=== PATIENT | female | born 1980 | race Caucasian/White ===

== ENCOUNTER 2019-07-16 10:05 | Emergency (ER) | payer SELFPAY ==
[~2019-07-16] VITALS: Ht 177.8 cm; Wt 99.8 kg
[2019-07-16 11:09] LABS: Basophils # (auto) 0 uL; Basophils % (auto) 0.4 % (0.0-2.0); Eosinophils # (auto) 0.3 uL; Eosinophils % (auto) 5.1 % (0.0-7.0); Hematocrit 43.5 % (36.0-46.0); Hemoglobin 14.7 g/dL (12.2-16.2); Lymphocytes % (auto) 14.8 % (10.0-50.0); Mean Corpuscular Hemoglobin 31.5 pg (28.0-32.0); Mean Corpuscular Hgb Conc. 33.7 g/dL (32.0-36.0); Mean Corpuscular Volume 93.3 fL (80.0-100.0); Monocytes # (auto) 0.4 uL; Monocytes % (auto) 5.9 % (0.0-12.0); Neutrophils # (auto) 4.8 uL; Neutrophils % (auto) 73.8 % (37.0-80.0); Platelet Count (auto) 229 10^3/uL (140-450); Red Blood Cells 4.67 10^6/uL (4.0-5.20); Red Cell Distribution Width 13.3 % (11.8-14.3); White Blood Cell 6.4 10^3/uL (4.4-10.8)
[2019-07-16 11:36] LABS: Calcium 9.3 mg/dL (8.5-10.1); Potassium 4.1 mmol/L (3.5-5.1)
[2019-07-16 12:06] LABS: BUN/Creatinine Ratio 14.3; Bilirubin, Total 0.4 mg/dL (0.2-1.0); Total Protein 8.1 g/dL (6.4-8.2)
[2019-07-16] MEDS ORDERED: MECLIZINE HCL 25 MG TAB PO ONE (12:15)
[2019-07-16] MEDS ORDERED: ONDANSETRON ODT 4 MG TAB PO ONE (12:15)
[2019-07-16] MEDS ORDERED: ONDANSETRON HCL 4 MG/2 ML VIAL IM ONE (12:15)
[2019-07-16 12:49] VITALS: BP 110/72
== END 2019-07-16 13:12 | disposition home or self-care (01) ==
LOC: ER 10:06
DX: R42 Dizziness and giddiness (principal); R11.0 Nausea; R51 Headache
CPT/HCPCS: 36415; 70450; 80053; 85025; 99284; J8597; Q0162; 93005

== ENCOUNTER 2020-08-14 13:33 | Inpatient (IN) | payer OTHER ==
[~2020-08-14] VITALS: Ht 177.8 cm; Wt 108.9 kg
[2020-08-14 14:31] LABS: Basophils # (auto) 0 10 ^3/uL (0-0.2); Basophils % (auto) 0.4 % (0.0-2.0); Eosinophils # (auto) 0.2 10 ^3/uL (0-0.8); Eosinophils % (auto) 2.9 % (0.0-7.0); Hematocrit 41.4 % (36.0-46.0); Hemoglobin 14.1 g/dL (12.2-16.2); Lymphocytes # (auto) 1.2 10 ^3/uL (0.4-5.4); Lymphocytes % (auto) 17.4 % (10.0-50.0); Mean Corpuscular Hemoglobin 31.5 pg (28.0-32.0); Mean Corpuscular Hgb Conc. 33.9 g/dL (32.0-36.0); Mean Corpuscular Volume 92.7 fL (80.0-100.0); Monocytes # (auto) 0.4 10 ^3/uL (0-1.3); Monocytes % (auto) 5.5 % (0.0-12.0); Neutrophils # (auto) 4.9 10 ^3/uL (1.6-8.6); Neutrophils % (auto) 73.8 % (37.0-80.0); Platelet Count (auto) 302 10^3/uL (140-450); Red Blood Cells 4.47 10^6/uL (4.0-5.20); Red Cell Distribution Width 12.8 % (11.8-14.3); White Blood Cell 6.7 10^3/uL (4.4-10.8)
[2020-08-14 15:00] LABS: Albumin 4.1 g/dL (3.4-5.0); Anion Gap 5 (5-15); Blood Urea Nitrogen 10 mg/dL (7-18); Calcium 9.2 mg/dL (8.5-10.1); Carbon Dioxide 27 mmol/L (21-32); Chloride 107 mmol/L (98-107); Glucose 92 mg/dL (74-106); Sodium 139 mmol/L (136-145)
[2020-08-14 15:05] LABS: Alanine Aminotransferase 29 U/L (13-56); Alkaline Phosphatase 62 U/L (45-117); Aspartate Aminotransferase 15 U/L (15-37); Bilirubin, Total 0.4 mg/dL (0.2-1.0); GFR African American 108 mL/min; GFR Non-African American 90 mL/min; Total Protein 7.9 g/dL (6.4-8.2)
[2020-08-15] MEDS ORDERED: DOCUSATE SOD 100 MG CAP PO PRN (00:45)
[2020-08-15] MEDS ORDERED: ONDANSETRON HCL 4 MG/2 ML VIAL IV PRN (00:45)
[2020-08-15] MEDS ORDERED: ACETAMINOPHEN 325 MG TAB PO PRN (00:45)
[2020-08-15] MEDS ORDERED: NITROGLYCERIN 0.4 MG SL TAB SL PRN (00:45)
[2020-08-15] MEDS ORDERED: MORPHINE SULF INJ 2 MG/ML SYRINGE 1ML IV PRN (00:45)
[2020-08-15] MEDS ORDERED: HYDROcodone-ACET 5/325MG TAB PO PRN (00:45)
[2020-08-15] MEDS ORDERED: MORPHINE SULFATE 4 MG/ML SYR/VIAL IV PRN (00:45)
[2020-08-15] MEDS ORDERED: FAMOTIDINE 20 MG TAB PO SCH (10:00)
[2020-08-15] MEDS ORDERED: ENOXAPARIN SOD 40 MG/0.4 ML SYRINGE SC SCH (10:00)
[2020-08-15] MEDS ORDERED: ZINC SULFATE 220mg CAP or TAB PO SCH (10:00)
[2020-08-15] MEDS ORDERED: ASCORBIC ACID 500 MG TAB PO SCH (10:00)
[2020-08-15] MEDS ORDERED: MULTIPLE VITAMIN TAB PO SCH (10:00)
[2020-08-15 20:30] VITALS: BP 134/81
== END 2020-08-15 21:00 | disposition home or self-care (01) | DRG 93 ==
LOC: ER 13:33 → TELE 13:34
PROVIDERS: ADMIT Nurse Practitioner Family; ATTEND Internal Medicine
DX: R20.0 Anesthesia of skin (principal); R07.89 Other chest pain; F17.210 Nicotine dependence, cigarettes, uncomplicated; Z86.718 Personal history of other venous thrombosis and embolism; R39.15 Urgency of urination; M79.604 Pain in right leg; R79.89 Other specified abnormal findings of blood chemistry; Z20.828 Contact with and (suspected) exposure to other viral communicable diseases; Z88.5 Allergy status to narcotic agent; R50.9 Fever, unspecified
CPT/HCPCS: 36415; 71045; 80053; 84484; 85025; 85379; 87426; 93971; G0378